=== PATIENT | male | born 1990 | race Hispanic/Latino ===

== ENCOUNTER 2018-11-04 14:18 | Emergency (ER) | payer OTHER ==
[2018-11-04 15:00] VITALS: O2SAT 98
[2018-11-04] MEDS ORDERED: Sodium Chloride 0.9% 1,000 ML IV STA (15:04)
[2018-11-04] MEDS ORDERED: Morphine 2 mg/ml ISec IVP STA (15:04)
--- NOTE | 2018-11-04 15:08 | ED PDOC ---
Arrival/HPI - General Chief Complaint: Abdominal Pain Time Seen by Provider: 11/04/18 14:19 Historian: Patient - History of Present Illness Narrative History of Present Illness (Text): 11/04/18 15:17 28 year old male, with past medical history of knee surgery, onset pancreatitis diagnosed 1 1/2 years ago, and chronic upper abdominal pain presents to emergency department for complaints of nausea, vomiting, lower abdominal pain, and loss of appetite for the past three days. Patient states that the abdominal pain began as a discomfort and currently describes it as intermittent, sharp, burning, and pressure-like. He also notes that he has never experienced this severity of pain before. He reports visiting the GI doctor where he was prescribed omeprazole, nexium, and percocet. Never had egd/colonoscopy as insurance discontinued prior. Patient denies any fevers, chills, headache, dizziness, diarrhea, or any other complaints. He notes that since his diagnosis of pancreatitis 1.5 years ago, he has been having this pain chronically but gets flares of the pain. PMD: Time/Duration: Other (3 days ) Symptom Onset: Gradual Symptom Course: Unchanged Quality: Pressure, Burning Activities at Onset: Light Context: Work Past Medical History - Provider Review Nursing Documentation Reviewed: Yes - Psychiatric Hx Substance Use: No - Anesthesia Hx Anesthesia: Yes Hx Anesthesia Reactions: No Hx Malignant Hyperthermia: No Family/Social History - Physician Review Nursing Documentation Reviewed: Yes Family/Social History: Other (brother colon cancer) Smoking Status: Never Smoked Hx Alcohol Use: No Hx Substance Use: No Allergies/Home Meds Allergies/Adverse Reactions: Allergies No Known Allergies Allergy (Verified 11/04/18 14:51) Review of Systems - Physician Review All systems were reviewed & negative as marked: Yes - Review of Systems Constitutional: absent: Fevers Gastrointestinal: Abdominal Pain (sharp intermittent pain, lower abdomen), Nausea, Vomiting, Appetite Changes (loss of appetite). absent: Diarrhea Physical Exam - Physical Exam Narrative Physical Exam (Text): 11/04/18 15:11 Constitutional: No acute distress. Head: Normocephalic. Atraumatic. Eyes: PERRL. ENT: Moist mucous membranes. Neck: Supple. Cardiovascular: Regular rate. Chest: No tenderness. Respiratory: Clear to auscultation bilaterally. GI: RLQ tenderness with guarding Back: No CVA tenderness. Musculoskeletal: No tenderness or swelling of extremities. Skin: No rash. Neurologic: Alert, no focal deficit. Vital Signs Reviewed: Yes Vital Signs Temp Pulse Resp BP Pulse Ox 11/04/18 14:19 98.9 F 97 H 18 140/82 98 Temperature: Afebrile Blood Pressure: Normal Pulse: Regular Respiratory Rate: Normal Appearance: Positive for: Well-Appearing, Non-Toxic, Comfortable Pain Distress: None Mental Status: Positive for: Alert and Oriented X 3 Medical Decision Making ED Course and Treatment: 11/04/18 15:38 Impression: 28 year old male presents to emergency department for loss of appetite, vo miting, and lower abdominal pain for the past three days. Plan: -- CT Abdomen/Pelvis -- Labs -- Morphine -- IV Fluids -- Zofran -- Urinalysis -- Reassess and disposition Prior Visits: Notes and results from previous visits were reviewed. Progress Notes: 11/04/18 17:20 CT Abdomen/Pelvis, reviewed by radiologist: IMPRESSION: No acute findings related to/ accounting for the clinical presentation. Specifically, no abnormalities to suggest acute appendicitis. No right lower quadrant inflammatory processes identified. Osseous findings in both femurs and multiple ribs. Excess ptotic changes also noted in the left hemipelvis. The findings are likely benign. The rib findings and the chest wall deformity appear to be the sequela of prior trauma. 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 Discharged home with Zofran, instructed f/u with GI for further evaluation. Instructed to return to ED for worsening pain, vomiting, fever, or any other problem. - Scribe Statement The provider has reviewed the documentation as recorded by the Scribe Kirby Holden All medical record entries made by the Scribe were at my direction and personally dictated by me. I have reviewed the chart and agree that the record accurately reflects my personal performance of the history, physical exam, medical decision making, and the department course for this patient. I have also personally directed, reviewed, and agree with the discharge instructions and disposition. Disposition/Present on Arrival - Present on Arrival Any Indicators Present on Arrival: No History of DVT/PE: No History of Uncontrolled Diabetes: No Urinary Catheter: No History of Decub. Ulcer: No History Surgical Site Infection Following: None - Disposition Have Diagnosis and Disposition been Completed?: Yes Diagnosis: Abdominal pain Disposition: HOME/ ROUTINE Disposition Time: 17:16 Patient Plan: Discharge Condition: STABLE Discharge Instructions (ExitCare): Acute Abdomen (Belly Pain) Additional Instructions: FINDINGS: LOWER THORAX: Multiple (3) pleural base masses which are densely calcified and in several instances appear to be related to chest wall deformity resulting from multiple healed rib fractures. LIVER: Unremarkable. No gross lesion or ductal dilatation. GALLBLADDER AND BILE DUCTS: Unremarkable. PANCREAS: Unremarkable. No gross lesion or ductal dilatation. SPLEEN: Unremarkable. ADRENALS: Unremarkable. No mass. KIDNEYS AND URETERS: Unremarkable. No hydronephrosis. No solid mass. VASCULATURE: Unremarkable. No aortic aneurysm. No atherosclerotic calcification or mural plaque present. BOWEL: Distended stomach filled with fluid. APPENDIX: A normal appendix is visualized in it's entirety. PERITONEUM: Unremarkable. No free fluid. No free air. LYMPH NODES: Unremarkable. No enlarged lymph nodes. BLADDER: Unremarkable. REPRODUCTIVE: Unremarkable. BONES: No acute fracture. Deformity of both proximal femurs. Findings are nonspecific, achondroplasia can assume this appearance. Exostosis projecting from the lateral aspect of the left iliac bone. OTHER FINDINGS: None. IMPRESSION: No acute findings related to/ accounting for the clinical presentation. Specifically, no abnormalities to suggest acute appendicitis. No right lower quadrant inflammatory processes identified. Osseous findings in both femurs and multiple ribs. Excess ptotic changes also noted in the left hemipelvis. The findings are likely benign. The rib findings and the chest wall deformity appear to be the sequela of prior trauma. 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 Prescriptions: Ondansetron ODT [Zofran ODT] 8 mg PO Q8H PRN #15 odt PRN Reason: Nausea/Vomiting Referrals: Bella Cabrera MD [Primary Care Provider] - Follow up with primary Forms: [place] ([place]), WORK NOTE
[2018-11-04 15:42] LABS: BASO # 0.03 K/mm3 (0.0-2.0); BASO % 0.3 % (0.0-3.0); EOS # 0.1 (0.0-0.7); HEMOGLOBIN 14.2 g/dL (14.0-18.0); LYMPH # 0.8 (1.2-3.4); LYMPH % 8.3 % (22.0-35.0); MEAN CELL VOLUME 79.2 fl (80.0-105.0); MEAN CORPUSCULAR HEMOGLOBIN 25.9 pg (25.0-35.0); MEAN CORPUSCULAR HGB CONC 32.6 g/dl (31.0-37.0); MEAN PLATELET VOLUME 10.1 fl (7.0-11.0); MONO # 0.5 (0.1-0.6); MONO % 5.8 % (1.0-6.0); RBC 5.49 10^6/uL (3.5-6.1); RED CELL DISTRIBUTION WIDTH 12.9 % (11.5-14.5); WHITE BLOOD COUNT 9.3 10^3/uL (4.5-11.0)
[2018-11-04 15:51] LABS: ALB/GLOB RATIO 1.4 (1.1-1.8); ALBUMIN 4.9 g/dL (3.0-4.8); ALT/SGPT 23 U/L (7-56); AST/SGOT 24 U/L (17-59); BLOOD UREA NITROGEN 12 mg/dL (7-21); CALCIUM 9.3 mg/dL (8.4-10.5); GFR NON-AFRICAN AMERICAN > 60; LIPASE 39 U/L (23-300)
[2018-11-04] MEDS ORDERED: Iohexol 350 MG/100 ML VIAL ONE (16:22)
--- NOTE | 2018-11-04 16:58 | CT ---
Date of service: 11/04/2018 PROCEDURE: CT Abdomen and Pelvis with contrast HISTORY: RLQ pain COMPARISON: None. TECHNIQUE: Intravenous contrast dose: 100 cc Omnipaque 350. Radiation dose: Total exam DLP = 565.29 mGy-cm. This CT exam was performed using one or more of the following dose reduction techniques: Automated exposure control, adjustment of the mA and/or kV according to patient size, and/or use of iterative reconstruction technique. FINDINGS: LOWER THORAX: Multiple (3) pleural base masses which are densely calcified and in several instances appear to be related to chest wall deformity resulting from multiple healed rib fractures. LIVER: Unremarkable. No gross lesion or ductal dilatation. GALLBLADDER AND BILE DUCTS: Unremarkable. PANCREAS: Unremarkable. No gross lesion or ductal dilatation. SPLEEN: Unremarkable. ADRENALS: Unremarkable. No mass. KIDNEYS AND URETERS: Unremarkable. No hydronephrosis. No solid mass. VASCULATURE: Unremarkable. No aortic aneurysm. No atherosclerotic calcification or mural plaque present. BOWEL: Distended stomach filled with fluid. APPENDIX: A normal appendix is visualized in it's entirety. PERITONEUM: Unremarkable. No free fluid. No free air. LYMPH NODES: Unremarkable. No enlarged lymph nodes. BLADDER: Unremarkable. REPRODUCTIVE: Unremarkable. BONES: No acute fracture. Deformity of both proximal femurs. Findings are nonspecific, achondroplasia can assume this appearance. Exostosis projecting from the lateral aspect of the left iliac bone. OTHER FINDINGS: None. IMPRESSION: No acute findings related to/ accounting for the clinical presentation. Specifically, no abnormalities to suggest acute appendicitis. No right lower quadrant inflammatory processes identified. Osseous findings in both femurs and multiple ribs. Excess ptotic changes also noted in the left hemipelvis. The findings are likely benign. The rib findings and the chest wall deformity appear to be the sequela of prior trauma. 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
[2018-11-04 17:42] VITALS: BP 132/79; PULSE 87; RESP 17; TEMP 98.7
== END 2018-11-04 17:42 | disposition home or self-care (01) ==
LOC: ED 14:18
DX: R10.30 Lower abdominal pain, unspecified (principal)
CPT/HCPCS: 74177; 80053; 83690; 83735; 84100; 85025; 96361; 96374; 96375; 99283; J2270; J2405; J7030; Q9967